=== PATIENT | male | born 1975 | race Caucasian/White ===

== ENCOUNTER 2017-09-25 10:47 | Emergency (ER) | payer MEDICARE, OTHER ==
[2017-09-25 11:16] VITALS: RESP 16; TEMP 98.2
[2017-09-25] MEDS ORDERED: SODIUM CHLORIDE 0.9% 1,000 ML IV STA ×2 (11:41→12:33)
[2017-09-25] MEDS ORDERED: DIPH,PERTUS(ACELL)TETVAC-LF 0.5 ML VIAL IM ONE (11:42)
[2017-09-25 12:24] VITALS: BP 123/79; PULSE 68
[2017-09-25 12:51] LABS: Basophils % (A) 0 %; Eosinophils # (A) 0.1 k/uL (0-0.7); Eosinophils % (A) 1 %; HCT 47.1 % (39.0-53.0); Lymphocytes # (A) 1.9 k/uL (1.0-4.8); Lymphocytes % (A) 11 %; MCH 32.9 pg (25.0-35.0); MCHC 31.7 g/dL (31.0-37.0); MCV 103.6 fL (80.0-100.0); Macrocytosis Slight; Mean Platelet Volume 7.2; Monocytes # (A) 0.5 k/uL (0-1.0); Monocytes % (A) 3 %; Neutrophils # (A) 14.3 k/uL (1.3-7.7); Neutrophils % (A) 85 %; Platelet Count 431 k/uL (150-450); RBC 4.55 m/uL (4.30-5.90); RDW 13.8 % (11.5-15.5); WBC 16.9 k/uL (3.8-10.6)
--- NOTE | 2017-09-25 12:51 | CT ---
EXAMINATION TYPE: CT brain wo con DATE OF EXAM: 09/25/2017 COMPARISON: NONE HISTORY: Seizure CT DLP: 978.[address] of the brain was performed. The ventricles, basal cisterns and sulci overlying the cerebral convexities demonstrate a normal appe arance. There is no evidence for intracranial hemorrhage or sulcal effacement. No mass effects are seen. Osseous calvarium is intact. If symptoms persist consider MRI as clinically warranted. IMPRESSION: 1. No acute intracranial process is seen at this time.
[2017-09-25 13:34] LABS: ALT 22 U/L (21-72); AST 24 U/L (17-59); Albumin 4.5 g/dL (3.5-5.0); Alkaline Phosphatase 93 U/L (38-126); Anion Gap 14 mmol/L; Blood Urea Nitrogen 17 mg/dL (9-20); Calcium 9.7 mg/dL (8.4-10.2); Carbon Dioxide 24 mmol/L (22-30); Chloride 108 mmol/L (98-107); Glucose 87 mg/dL (74-99); Potassium 4.2 mmol/L (3.5-5.1); Sodium 146 mmol/L (137-145); Total Bilirubin 0.4 mg/dL (0.2-1.3); Total Protein 7.5 g/dL (6.3-8.2)
[2017-09-25 13:39] LABS: Valproic Acid (Depakene) 56.6 ug/mL
--- NOTE | 2017-09-25 14:29 | ED ---
Seizure HPI - General Chief Complaint: Seizure Stated Complaint: Seizure Time Seen by Provider: 09/25/17 11:35 Source: patient, EMS Mode of arrival: EMS Limitations: altered mental status - History of Present Illness Initial Comments: This 42-year-old white male presents by EMS after apparently having a seizure. They apparently found him in a snowbank seizing. They gave him 10 mg of Versed and this apparently stopped the seizure. He apparently does have a long- standing history of seizures and is on several different antiseizure medications. The mother later does present and states that she did not witness this seizure. He duration of the seizure is unknown. The patient does complain of some pain to his left tongue and apparently bit his tongue. He states that he thinks that he bit off a piece of his tongue and that he swallowed it and it is stuck in his throat. He also has abrasions noted to his scalp and bilateral hands. He has a very bizarre behavior. He is paranoid at times and is very angry. He is quite controversial, argumentative, and swearing profusely. His mother does not relate a known history of psychiatric disorders. The patient is a very poor historian. He has a significant tangential thought processes. - Related Data Home Medications Medication Instructions Recorded Confirmed Divalproex [Depakote] 1,000 mg PO BID 04/16/16 09/25/17 Topiramate [Topamax] 100 mg PO BID 04/16/16 09/25/17 lamoTRIgine [LaMICtal] 200 mg PO BID 04/16/16 09/25/17 Previous Rx's Medication Instructions Recorded Lidocaine Viscous 2% [Xylocaine 1 ml MUCOUS MEM Q3H PRN #20 ml 09/25/17 Viscous] Allergies Allergy/AdvReac Type Severity Reaction Status Date / Time No Known Allergies Allergy Verified 09/25/17 11:59 Review of Systems ROS Statement: Those systems with pertinent positive or pertinent negative responses have been documented in the HPI. ROS Other: All systems not noted in ROS Statement are negative. Past Medical History Past Medical History: Seizure Disorder History of Any Multi-Drug Resistant Organisms: None Reported Past Surgical History: Hernia Repair, Orthopedic Surgery Past Psychological History: No Psychological Hx Reported Smoking Status: Current every day smoker Past Alcohol Use History: None Reported, Rare Past Drug Use History: Marijuana General Exam - General Exam Comments Initial Comments: GENERAL: The patient is well nourished and well hydrated. VITAL SIGNS: Heart rate, blood pressure, respiratory rate reviewed as recorded in nurse's notes. EYES: Pupils are round and reactive. Extraocular movements are intact. No conjunctival / lid redness or swelling. ENT: No external evidence of injury, swelling, or ecchymosis. Airway is patent. Throat is clear. There is an abrasion noted to the left tongue. There is no missing pieces of his tongue as the patient persists. NECK: Nontender. No swelling or evidence of injury. No subcutaneous emphysema. Trachea is midline. No thyroid mass. HEART: Regular rate and rhythm. Good peripheral pulses. LUNGS/CHEST: Breath sounds clear and equal bilaterally. No rales, rhonchi, or wheezes. No ecchymosis, subcutaneous emphysema, or tenderness. ABDOMEN: Abdomen soft without tenderness. No palpable masses or organomegaly. No peritoneal signs. No abdominal wall swelling or ecchymosis. EXTREMITIES: No extremity tenderness. Normal muscle tone and function. No thoracolumbar tenderness. NEUROLOGIC: Sensation is grossly intact. Cranial nerve exam reveals face is symmetrical, tongue is midline, speech is clear. SKIN: Minor abrasions are noted to the superior portion of the scalp as well as the bilateral hands over the knuckles. No induration or masses noted. PSYCHIATRIC: Alert, argumentative, paranoid, delusional. Limitations: altered mental status Course Vital Signs 09/25/17 09/25/17 10:50 12:23 Temperature 98.2 F Pulse Rate 66 68 Respiratory 16 16 Rate Blood Pressure 113/67 123/79 O2 Sat by Pulse 99 99 Oximetry Medical Decision Making - Medical Decision Making The patient was seen and examined. All diagnostics were reviewed. His white blood cell count is minimally elevated. Remainder of labs are essentially within normal limits. His Depakote level is therapeutic. The urine drug screen is positive for marijuana. The patient had a computed tomography scan of the brain and this did not show any acute processes. He is watched for quite some time and still maintains the significant psychiatric symptoms. It is felt as though he benefit from further psychiatric evaluation. The psychiatric team did evaluate the patient. The case is discussed with the psychiatric nurse. They feel as though he is apparently stable for discharge. They will provide him with some outpatient resources. They do not feel as though he is a harm to himself. - Lab Data Result diagrams: 09/25/17 12:19 09/25/17 13:12 Lab Results 09/25/17 09/25/17 09/25/17 Range/Units 12:19 13:12 16:05 WBC 16.9 H (3.8-10.6) k/uL RBC 4.55 (4.30-5.90) m/uL Hgb 15.0 (13.0-17.5) gm/dL Hct 47.1 (39.0-53.0) % MCV 103.6 H (80.0-100.0) fL MCH 32.9 (25.0-35.0) pg MCHC 31.7 (31.0-37.0) g/dL RDW 13.8 (11.5-15.5) % Plt Count 431 (150-450) k/uL Neutrophils % 85 % Lymphocytes % 11 % Monocytes % 3 % Eosinophils % 1 % Basophils % 0 % Neutrophils # 14.3 H (1.3-7.7) k/uL Lymphocytes # 1.9 (1.0-4.8) k/uL Monocytes # 0.5 (0-1.0) k/uL Eosinophils # 0.1 (0-0.7) k/uL Basophils # 0.0 (0-0.2) k/uL Macrocytosis Slight Sodium 146 H (137-145) mmol/L Potassium 4.2 (3.5-5.1) mmol/L Chloride 108 H (98-107) mmol/L Carbon Dioxide 24 (22-30) mmol/L Anion Gap 14 mmol/L BUN 17 (9-20) mg/dL Creatinine 1.30 H (0.66-1.25) mg/dL Est GFR (MDRD) Af Amer >60 (>60 ml/min/1.73 sqM) Est GFR (MDRD) Non-Af >60 (>60 ml/min/1.73 sqM) Glucose 87 (74-99) mg/dL Calcium 9.7 (8.4-10.2) mg/dL Total Bilirubin 0.4 (0.2-1.3) mg/dL AST 24 (17-59) U/L ALT 22 (21-72) U/L Alkaline Phosphatase 93 (38-126) U/L Total Protein 7.5 (6.3-8.2) g/dL Albumin 4.5 (3.5-5.0) g/dL Urine Color Light Yellow Urine Appearance Clear (Clear) Urine pH 5.5 (5.0-8.0) Ur Specific [place] 1.006 (1.001-1.035) Urine Protein Negative (Negative) Urine Glucose (UA) Negative (Negative) Urine Ketones 1+ H (Negative) Urine Blood Negative (Negative) Urine Nitrite Negative (Negative) Urine Bilirubin Negative (Negative) Urine Urobilinogen <2.0 (<2.0) mg/dL Ur Leukocyte Esterase Negative (Negative) Urine Opiates Screen Not Detected (NotDetected) Ur Oxycodone Screen Not Detected (NotDetected) Urine Methadone Screen Not Detected (NotDetected) Ur Propoxyphene Screen Not Detected (NotDetected) Ur Barbiturates Screen Not Detected (NotDetected) Valproic Acid 56.6 ug/mL U Tricyclic Antidepress Not Detected (NotDetected) Ur Phencyclidine Scrn Not Detected (NotDetected) Ur Amphetamines Screen Not Detected (NotDetected) U Methamphetamines Scrn Not Detected (NotDetected) U Benzodiazepines Scrn Not Detected (NotDetected) Urine Cocaine Screen Not Detected (NotDetected) U Marijuana (THC) Screen Detected H (NotDetected) Disposition Clinical Impression: Generalized seizure, Abrasions of multiple sites, Abrasion of tongue Disposition: HOME SELF-CARE Condition: Fair Instructions: Recurrent Seizures in Adults (ED), Abrasion (ED) Additional Instructions: Please follow-up with the psychiatric nurses recommendations for further follow- up. Please use Tylenol or Motrin if needed for any pain. Prescriptions: Lidocaine Viscous 2% [Xylocaine Viscous] 1 ml MUCOUS MEM Q3H PRN #20 ml PRN Reason: tongue pain Referrals: Joaquin Paz MD [Primary Care Provider] - 1-2 days Time of Disposition: 18:11
[2017-09-25] MEDS ORDERED: LIDOCAINE VISCOUS 2% 15 ML CUP MUCOUS MEM PRN (15:48)
[2017-09-25 16:23] LABS: Appearance,Urine Clear (Clear); Bilirubin,Urine Negative (Negative); Blood,Urine Negative (Negative); Color,Urine Light Yellow; Glucose,Urine (UA) Negative (Negative); Ketones,Urine 1+ (Negative); Leukocyte Esterase,Urine Negative (Negative); Nitrite,Urine Negative (Negative); PH, Urine 5.5 (5.0-8.0); Protein,Urine Negative (Negative); Specific Gravity,Urine 1.006 (1.001-1.035); Urobilinogen,Urine <2.0 mg/dL (<2.0)
[2017-09-25 16:36] LABS: Amphetamine Screen,Urine Not Detected (NotDetected); Barbiturate Screen,Urine Not Detected (NotDetected); Benzodiazepines Screen,Urine Not Detected (NotDetected); Cocaine Screen,Urine Not Detected (NotDetected); Methadone Screen, Urine Not Detected (NotDetected); Opiate Screen,Urine Not Detected (NotDetected); Oxycodone Screen, Urine Not Detected (NotDetected); Phencyclidine Screen,Urine Not Detected (NotDetected); Urn Cannabinoid Scrn Detected (NotDetected)
[2017-09-25 16:37] LABS: Tricyclic Antidepressant,Urine Not Detected (NotDetected)
== END 2017-09-25 18:35 | disposition home or self-care (01) ==
LOC: EC 10:47
DX: S00.01XA Abrasion of scalp, initial encounter (principal); S60.512A Abrasion of left hand, initial encounter; S60.511A Abrasion of right hand, initial encounter; S00.512A Abrasion of oral cavity, initial encounter; R56.9 Unspecified convulsions; F17.200 Nicotine dependence, unspecified, uncomplicated; Z23 Encounter for immunization; Z79.899 Other long term (current) drug therapy
CPT/HCPCS: 36415; 70450; 80053; 80164; 80306; 81003; 82075; 85025; 90471; 90715; 96360; 96361; 99285

== ENCOUNTER 2017-09-26 00:24 | Emergency (ER) | payer MEDICARE, OTHER ==
[2017-09-26] MEDS ORDERED: LIDOCAINE VISCOUS 2% 15 ML CUP MUCOUS MEM ONE (00:36)
[2017-09-26] MEDS ORDERED: PENICILLIN V POTASSIUM 250 MG TAB PO STA (00:36)
[2017-09-26] MEDS ORDERED: DEXAMETHASONE SOD PHOSPHATE 4 MG/ML 1 ML VIAL PO STA (00:37)
[2017-09-26] MEDS ORDERED: Acetaminophen-Codeine 300-30mg TAB PO STA (00:37)
[2017-09-26 00:39] VITALS: BP 132/87; PULSE 76; RESP 18; TEMP 97.4
[2017-09-26] MEDS ORDERED: IBUPROFEN 600 MG STARTER PACK 4 TAB BTL PO STA (00:40)
[2017-09-26] MEDS ORDERED: ACET/COD 300 MG/30 MG STARTER PACK 6 TAB BTL PO STA (00:40)
[2017-09-26] MEDS ORDERED: PENICILLIN VK 500MG STARTER 4 TAB BTL PO STA (00:40)
--- NOTE | 2017-09-26 00:40 | ED ---
ENT HPI - General Stated complaint: TOOTH PAIN Time Seen by Provider: 09/26/17 00:29 Source: patient, EMS, RN notes reviewed Mode of arrival: EMS Limitations: no limitations - History of Present Illness Initial comments: 42-year-old male present emergency Department chief complaint of dental pain. Patient states that he's been having ongoing dental worsening. Patient states that he was seen here for seizure earlier states that he bit his tongue and states his tongue also hurts. Patient denies any fevers or chills. Patient states that he was given viscous lidocaine still won't or cannot have it in stock to have it filled. Patient denies any neck pain, headache or dizziness. Denies any difficulty swallowing though he complains of tonsillar pain. Patient states it's tonsillar swollen. - Related Data Home Medications Medication Instructions Recorded Confirmed Divalproex [Depakote] 1,000 mg PO BID 04/16/16 09/25/17 Topiramate [Topamax] 100 mg PO BID 04/16/16 09/25/17 lamoTRIgine [LaMICtal] 200 mg PO BID 04/16/16 09/25/17 Previous Rx's Medication Instructions Recorded Lidocaine Viscous 2% [Xylocaine 1 ml MUCOUS MEM Q3H PRN #20 ml 09/25/17 Viscous] Penicillin V Potassium [Pen Vee K] 500 mg PO QID #40 tablet 09/26/17 Allergies Allergy/AdvReac Type Severity Reaction Status Date / Time No Known Allergies Allergy Verified 09/25/17 11:59 Review of Systems ROS Statement: Those systems with pertinent positive or pertinent negative responses have been documented in the HPI. ROS Other: All systems not noted in ROS Statement are negative. Past Medical History Past Medical History: Seizure Disorder History of Any Multi-Drug Resistant Organisms: None Reported Past Surgical History: Hernia Repair, Orthopedic Surgery Past Psychological History: No Psychological Hx Reported Smoking Status: Current every day smoker Past Alcohol Use History: None Reported, Rare Past Drug Use History: Marijuana General Exam General appearance: alert, in no apparent distress Head exam: Present: atraumatic, normocephalic, normal inspection Eye exam: Present: normal appearance, PERRL, EOMI. Absent: scleral icterus, conjunctival injection, periorbital swelling ENT exam: Present: mucous membranes moist, TM's normal bilaterally, normal external ear exam. Absent: normal exam, normal oropharynx (edentulous, multiple eroded teeth noted, tonsillar stones and mild edema noted) Neck exam: Present: normal inspection, full ROM. Absent: tenderness, meningismus, lymphadenopathy Respiratory exam: Present: normal lung sounds bilaterally. Absent: respiratory distress, wheezes, rales, rhonchi, stridor Cardiovascular Exam: Present: regular rate, normal rhythm, normal heart sounds. Absent: systolic murmur, diastolic murmur, rubs, gallop, clicks Medical Decision Making - Medical Decision Making 42-year-old male presented from for dental pain. Patient has very poor dentition we given antibiotics for possible infection. Patient will be given viscous lidocaine in the emergency department as he is a prescription of this. Patient we given dosed according for the pain and Decadron for his tonsillitis. Patient will be discharged with antibiotics and [codeine. Disposition Clinical Impression: Dental caries, Toothache, Tonsillitis Disposition: HOME SELF-CARE Condition: Stable Instructions: Toothache (ED) Additional Instructions: Please return to the Emergency Department if symptoms worsen or any other concerns. Prescriptions: Penicillin V Potassium [Pen Vee K] 500 mg PO QID #40 tablet Referrals: Joaquin Paz MD [Primary Care Provider] - 1-2 days Time of Disposition: 00:40
== END 2017-09-26 01:18 | disposition home or self-care (01) ==
LOC: EC 00:24
DX: K02.9 Dental caries, unspecified (principal); J03.90 Acute tonsillitis, unspecified; G40.909 Epilepsy, unspecified, not intractable, without status epilepticus; F17.200 Nicotine dependence, unspecified, uncomplicated; Z79.899 Other long term (current) drug therapy
CPT/HCPCS: 99283; J1100

== ENCOUNTER 2017-09-26 18:37 | Inpatient (IN) | payer MEDICARE, MEDICAID ==
[2017-09-26] MEDS ORDERED: HYDROcodone/APAP 5-325MG 1 EACH TAB PO STA (19:17)
--- NOTE | 2017-09-26 20:04 | ED ---
Psych HPI - General Chief Complaint: Dental/Oral Stated Complaint: Dental Pain Source: patient, EMS Mode of arrival: EMS - History of Present Illness Initial Comments: 42 yo male with pmh of seizure disorder and no psych history presenting for evaluation of erratic behavior and psych evaluation. Pt was seen at this facility twice yesterday, once for psych evaluation and the second time for dental pain. He was cleared by a psychiatric evaluation for outpatient treatment on the first visit on the second visit he was set up with a dentist which she saw today. At the dental visit he had a tooth extracted however prior to going to the dental appointment he had pulled tooth out himself. While obtaining this history patient also states that he had pain into his neck which radiates down into his right chest and down into his right pelvis and right leg. Furthermore as I was interviewing the patient he reached into his mouth and manipulated a piece of tooth loose and pulled it out of his mouth. As the questions progressed the patient's story became less and less clear, jumping from one idea to another raising concern for flight of ideas and possible underlying psych condition. Patient further stated that he felt like he was going to stating, "I've been around people before. I smell like they do and I know I'm going to ." When asked what he thought he was going to from he would change the topic. - Related Data Home Medications Medication Instructions Recorded Confirmed Divalproex [Depakote] 1,000 mg PO BID 04/16/16 09/26/17 Topiramate [Topamax] 100 mg PO BID 04/16/16 09/26/17 lamoTRIgine [LaMICtal] 200 mg PO BID 04/16/16 09/26/17 Previous Rx's Medication Instructions Recorded Lidocaine Viscous 2% [Xylocaine 1 ml MUCOUS MEM Q3H PRN #20 ml 09/25/17 Viscous] Penicillin V Potassium [Pen Vee K] 500 mg PO QID #40 tablet 09/26/17 Allergies Allergy/AdvReac Type Severity Reaction Status Date / Time No Known Allergies Allergy Verified 09/26/17 19:28 Review of Systems ROS Statement: Those systems with pertinent positive or pertinent negative responses have been documented in the HPI. ROS Other: All systems not noted in ROS Statement are negative. Constitutional: Reports: other (smells like he is going to ). Denies: fever , chills Eyes: Denies: eye pain, eye discharge, vision change ENT: Reports: throat pain (right sided throat/neck), dental pain. Denies: ear pain, hearing loss, epistaxis Respiratory: Denies: cough, dyspnea Cardiovascular: Denies: chest pain, palpitations Endocrine: Denies: fatigue, polydipsia, polyuria Gastrointestinal: Denies: abdominal pain, nausea, vomiting Genitourinary: Denies: urgency, dysuria Musculoskeletal: Denies: back pain, arthralgia, myalgia Skin: Denies: rash, lesions Neurological: Denies: headache, weakness Psychiatric: Reports: anxiety. Denies: auditory hallucinations, visual hallucinations, homicidal thoughts, suicidal thoughts Hematological/Lymphatic: Denies: easy bleeding, easy bruising Past Medical History Past Medical History: Seizure Disorder History of Any Multi-Drug Resistant Organisms: None Reported Past Surgical History: Hernia Repair, Orthopedic Surgery Past Psychological History: No Psychological Hx Reported Smoking Status: Current every day smoker Past Alcohol Use History: None Reported, Rare Past Drug Use History: Marijuana General Exam Limitations: no limitations General appearance: alert, in distress (mild when recounting his symptoms) Head exam: Present: normocephalic, other (abrasion to upper forehead. ) Eye exam: Present: normal appearance, PERRL, EOMI. Absent: scleral icterus, conjunctival injection, nystagmus, periorbital swelling, periorbital tenderness ENT exam: Present: mucous membranes moist, other (pt has multiple dental extractions, one of which was performed by himself today; pt removed a piece of a tooth in front of me during interview) Neck exam: Present: normal inspection, full ROM. Absent: tenderness, lymphadenopathy, thyromegaly Respiratory exam: Present: normal lung sounds bilaterally. Absent: respiratory distress, wheezes, rales, rhonchi, stridor Cardiovascular Exam: Present: regular rate, normal rhythm GI/Abdominal exam: Present: soft. Absent: distended, tenderness, guarding, rebound, rigid Rectal exam: Present: deferred Extremities exam: Present: normal inspection, full ROM, normal capillary refill. Absent: tenderness, pedal edema, joint swelling, calf tenderness Back exam: Present: normal inspection Neurological exam: Present: alert, oriented X3, CN II-XII intact Psychiatric exam: Present: agitated, other (poor concentration, poor insight). Absent: homicidal ideation, suicidal ideation Skin exam: Present: warm, dry, intact, normal color Course Vital Signs 09/26/17 18:43 Pulse Rate 83 Respiratory 18 Rate Blood Pressure 128/78 O2 Sat by Pulse 98 Oximetry Medical Decision Making - Medical Decision Making 42 yo male presenting for his third visit since yesterday morning. States he removed a tooth on his own then had another removed by a dentist. States he feels like he is going to but can't articulate why. During interview pt removed a tooth fragment from its socket which caused further bleeding. Pt seems to have a flight of ideas making interview difficult. Family arrived at the bedside and states this "isn't him" and that although he has seizure disorder he isn't like this. Further deny injuries or other precipitating etiology like new or changing medications. Concern for psychiatric condition NOS and will obtain labs, seizure med levels, and order psych evaluation. CT head performed yesterday and without further trauma or indication of infection will not repeat at this time. Labs revealed a leukocytosis but otherwise no significant abnormalities. Psych eval performed and they agreed with plan to admit for further evaluation. Admission order placed and bed request submitted. - Lab Data Result diagrams: 09/26/17 19:25 09/26/17 19:25 Lab Results 09/26/17 09/26/17 Range/Units 19:25 19:25 WBC 16.6 H (3.8-10.6) k/uL RBC 4.20 L (4.30-5.90) m/uL Hgb 13.8 (13.0-17.5) gm/dL Hct 41.5 (39.0-53.0) % MCV 98.8 (80.0-100.0) fL MCH 32.9 (25.0-35.0) pg MCHC 33.3 (31.0-37.0) g/dL RDW 12.5 (11.5-15.5) % Plt Count 441 (150-450) k/uL Neutrophils % 77 % Lymphocytes % 16 % Monocytes % 6 % Eosinophils % 0 % Basophils % 0 % Neutrophils # 12.7 H (1.3-7.7) k/uL Lymphocytes # 2.6 (1.0-4.8) k/uL Monocytes # 0.9 (0-1.0) k/uL Eosinophils # 0.0 (0-0.7) k/uL Basophils # 0.0 (0-0.2) k/uL Sodium 146 H (137-145) mmol/L Potassium 4.7 (3.5-5.1) mmol/L Chloride 108 H (98-107) mmol/L Carbon Dioxide 23 (22-30) mmol/L Anion Gap 15 mmol/L BUN 14 (9-20) mg/dL Creatinine 1.00 (0.66-1.25) mg/dL Est GFR (MDRD) Af Amer >60 (>60 ml/min/1.73 sqM) Est GFR (MDRD) Non-Af >60 (>60 ml/min/1.73 sqM) Glucose 86 (74-99) mg/dL Calcium 10.0 (8.4-10.2) mg/dL Valproic Acid 11.0 ug/mL Carbamazepine <3.0 ug/mL Serum Alcohol <10 mg/dL Disposition Clinical Impression: Psychosis Disposition: ADMITTED IP TO THIS [facility] Decision to Admit Reason: Admit from [facility] Decision Date: 09/26/17 Decision Time: 21:22
[2017-09-26 20:06] LABS: Basophils % (A) 0 %; Eosinophils % (A) 0 %; HCT 41.5 % (39.0-53.0); HGB 13.8 gm/dL (13.0-17.5); Lymphocytes # (A) 2.6 k/uL (1.0-4.8); Lymphocytes % (A) 16 %; MCH 32.9 pg (25.0-35.0); MCHC 33.3 g/dL (31.0-37.0); MCV 98.8 fL (80.0-100.0); Mean Platelet Volume 6.2; Monocytes # (A) 0.9 k/uL (0-1.0); Monocytes % (A) 6 %; Neutrophils # (A) 12.7 k/uL (1.3-7.7); Neutrophils % (A) 77 %; Platelet Count 441 k/uL (150-450); RDW 12.5 % (11.5-15.5); WBC 16.6 k/uL (3.8-10.6)
[2017-09-26 20:20] LABS: Alcohol <10 mg/dL; Anion Gap 15 mmol/L; Blood Urea Nitrogen 14 mg/dL (9-20); Carbamazepine (Tegretol) <3.0 ug/mL; Carbon Dioxide 23 mmol/L (22-30); Chloride 108 mmol/L (98-107); Glucose 86 mg/dL (74-99); Potassium 4.7 mmol/L (3.5-5.1); Sodium 146 mmol/L (137-145)
[2017-09-26] MEDS ORDERED: LIDOCAINE VISCOUS 2% 15 ML CUP MUCOUS MEM ONE (21:38)
[2017-09-26 21:41] LABS: Amphetamine Screen,Urine Not Detected (NotDetected); Barbiturate Screen,Urine Not Detected (NotDetected); Benzodiazepines Screen,Urine Not Detected (NotDetected); Cocaine Screen,Urine Not Detected (NotDetected); Methadone Screen, Urine Not Detected (NotDetected); Opiate Screen,Urine Detected (NotDetected); Oxycodone Screen, Urine Not Detected (NotDetected); Phencyclidine Screen,Urine Not Detected (NotDetected); Tricyclic Antidepressant,Urine Not Detected (NotDetected); Urn Cannabinoid Scrn Detected (NotDetected)
[2017-09-26] MEDS ORDERED: MAGNESIUM HYDROXIDE 2,400 MG/10 ML CUP PO PRN (22:06)
[2017-09-26] MEDS ORDERED: ZIPRASIDONE 20 MG VIAL IM PRN (22:06)
[2017-09-26] MEDS ORDERED: ACETAMINOPHEN TAB 325 MG TAB PO PRN (22:06)
[2017-09-26] MEDS ORDERED: MAG HYDROX/AL HYDROX/SIMETH 30 ML CUP PO PRN (22:06)
[2017-09-26] MEDS ORDERED: PENICILLIN VK 500MG STARTER 4 TAB BTL PO SCH (22:15)
[2017-09-26] MEDS: lamoTRIgine 100 MG TAB PO SCH (23:43)
[2017-09-26] MEDS: TOPIRAMATE 100 MG TAB PO SCH (23:44)
[2017-09-26] MEDS: DIVALPROEX 500 MG TABLET.DR PO SCH (23:44)
--- NOTE | 2017-09-26 23:51 | P.MDCNMH ---
History of Present Illness H&P Date: 09/26/17 Chief Complaint: medical management 42 year old male with history of epilepsy, presented to the ED due to erratic behavior as reported by the family. Patient is jumping between subjects during the interview, but he is fixated on the idea that he can smell and thinks he will . He had severe dental pain for which he came to the ED yesterday, then was referred to OP dentist office who was able to extract a tooth for the patient. Medical records also indicates that he has pulled another tooth at home using a spoon, and ED report noted that he had pulled a fragment of a tooth from his mouth while waiting in the ED during the interview with ED doc. However, patient is denying any of that. Patient has no past psych history and claims to be compliant with his seizure meds despite that he gets frequent breakthrough seizures, and last one was 2 days ago where he bit his tongue (and he showed me) otherwise denies urinary or bowel incontinence during this attack. Patient otherwise, indicated that he wants to live and scared of thats why he is here. He started talking about video games, then his father, then his dental pain, and kept going on and on about random subjects without reaching a point. He reports throbbing toothache over his right upper molar, 10./10 in severity, denies any fevers or chills, denies any bleeding from the mouth, and kept on requesting ice packs. Review of Systems Constitutional: Patient denies fever, denies chills, denies night sweating, denies significant weight changes Eyes: Patient denies visual changes, denies eye pain ENT: Patient denies ear pain, denies rhinorrhea, denies sore throat Cardiovascular: Patient denies chest pain, denies exertional dyspnea, denies peripheral leg edema, denies orthopnea, denies paroxysmal nocturnal dyspnea Respiratory:Patient denies cough, denies wheezing, denies shortness of breath Gastrointestinal: Patient denies diarrhea, denies constipation, denies nausea , denies vomiting, denies abdominal pain Genitourinary: Patient denies dysuria, denies hematuria, denies changes in urinary habits, denies genital lesions Musculoskeletal: Patient denies muscle pain, denies joint pain Psychiatric: Patient denies changes in mood or memory, denies suicidal ideation, denies anxiety Endocrine: Patient denies heat intolerance, denies cold intolerance, denies excessive thirst, denies polyuria Neurological: Patient denies focal neurologic deficits, denies weakness, denies numbness, denies tingling Hem/Lymphatic: Patient denies bleeding tendency, denies bruising, denies swollen lymph glands Allergic/Immun: Patient denies recent allergic reactions Skin: Patient denies rashes, denies pruritis, denies ulcers Past Medical History Past Medical History: Seizure Disorder History of Any Multi-Drug Resistant Organisms: None Reported Past Surgical History: Hernia Repair, Orthopedic Surgery Past Psychological History: No Psychological Hx Reported Smoking Status: Current every day smoker Past Alcohol Use History: None Reported, Rare Past Drug Use History: Marijuana - Past Family History father Family Medical History: Coronary Artery Disease (CAD) Medications and Allergies Home Medications Medication Instructions Recorded Confirmed Type Divalproex [Depakote] 1,000 mg PO BID 04/16/16 09/26/17 History Topiramate [Topamax] 100 mg PO BID 04/16/16 09/26/17 History lamoTRIgine [LaMICtal] 200 mg PO BID 04/16/16 09/26/17 History Lidocaine Viscous 2% [Xylocaine 1 ml MUCOUS MEM Q3H PRN #20 ml 09/25/17 Rx Viscous] Penicillin V Potassium [Pen Vee K] 500 mg PO QID #40 tablet 09/26/17 09/26/17 Rx Allergies Allergy/AdvReac Type Severity Reaction Status Date / Time No Known Allergies Allergy Verified 09/26/17 19:28 Physical Exam Vitals: Vital Signs Temp Pulse Pulse Resp BP BP Pulse Ox 09/26/17 22:11 99.7 F H 80 127/89 09/26/17 18:43 83 18 128/78 98 Intake and Output 09/26/17 09/26/17 09/27/17 14:59 22:59 06:59 Other: Weight 78.018 kg Patient Weight 09/27/17 06:59 Weight 78.018 kg Constitutional: No acute distress, pressured speech Eyes: Anicteric sclerae, moist conjunctiva, no lid-lag Pupils equal round reactive to light ENMT: NC/AT very poor oral hygiene, right upper molar tooth bed looks clean with no bleeding gums left side of the tongue with evidence of an ulcer 1 X 1 CM, no bleeding , no tenderness Neck: Supple, FROM, no masses, or JVD No carotid bruits No thyromegaly Lungs: Clear to auscultation Clear to percussion Normal respiratory effort, no accessory muscle use Cardiovascular: Heart regular in rate and rhythm, No murmurs, gallops, or rubs No peripheral edema Abdominal: Soft Nontender, no guarding, rebound or rigidity Abdomen moving with respiration Normoactive bowel sounds No hepatomegaly, No splenomegaly No palpable mass No abdominal wall hernia noted Skin: multiple abrasions over bilateral hands, evidence of dried blood around his finger tips , but he could not identify the source Normal temperature, tone, texture, turgor No induration No subcutaneous nodules No rash No ulcers Extremities: No digital cyanosis No clubbing Pedal pulses intact and symmetrical Radial pulses intact and symmetrical No calf tenderness Psychiatric: Alert and oriented to person, place and time paranoid and pressured speech poor judgment Neuro Muscles Strength 5/5 in all 4 extremities Sensation to light touch grossly present throughout No focal sensory deficits Lymphatics: no palpable cervical or supraclavicular , or inguinal lymph nodes Cranial Nerve Examination - Cranial Nerves Cranial Nerve II- Optic: Intact Cranial Nerve III- Oculomotor: Intact Cranial Nerve IV- Trochlear: Intact Cranial Nerve V- Trigeminal: Intact Cranial Nerve - Abducens: Intact Cranial Nerve VII- Facial: Intact Cranial Nerve VIII- Auditory: Intact Cranial Nerve IX- Glossopharyngeal: Intact Cranial Nerve X- Vagus: Intact Cranial Nerve XI- Accessory: Intact Cranial Nerve XII- Hypoglossal: Intact Results CBC & Chem 7: 09/26/17 19:25 09/26/17 19:25 Labs: Abnormal Lab Results - Last 24 Hours (Table) 09/26/17 09/26/17 09/26/17 Range/Units 19:25 19:25 21:18 WBC 16.6 H (3.8-10.6) k/uL RBC 4.20 L (4.30-5.90) m/uL Neutrophils # 12.7 H (1.3-7.7) k/uL Sodium 146 H (137-145) mmol/L Chloride 108 H (98-107) mmol/L Urine Opiates Screen Detected H (NotDetected) U Marijuana (THC) Screen Detected H (NotDetected) Assessment and Plan (1) Dental caries Narrative/Plan: poor dental hygiene recent dental extraction , then followed but self extraction of 2 more teeth Dentist has given him a prescription for penicillin start on Augmentin BID for 7 days pain control Current Visit: No Status: Acute Code(s): K02.9 - DENTAL CARIES, UNSPECIFIED SNOMED Code(s): 24560253 (2) Psychosis Narrative/Plan: management per psych Current Visit: Yes Status: Acute Code(s): F29 - UNSP PSYCHOSIS NOT DUE TO A SUBSTANCE OR KNOWN PHYSIOL COND SNOMED Code(s): 58876499 (3) Abrasion of tongue Narrative/Plan: patient claims that was due to a breakthrough seizure Current Visit: No Status: Acute Code(s): S00.512A - ABRASION OF ORAL CAVITY , INITIAL ENCOUNTER SNOMED Code(s): 606240706 (4) Abrasions of multiple sites Narrative/Plan: patient did not identify a cause, and when asked he would not give an answer about the mechanism of these abrasions local wound care Current Visit: No Status: Acute Code(s): T07.XXXA - UNSPECIFIED MULTIPLE INJURIES, INITIAL ENCOUNTER SNOMED Code(s): 116077130 (5) Generalized seizure Narrative/Plan: resume home medications patient counseled not to drive per state law for at least 6 months from his last seizure check AED blood levels seizure precautions Current Visit: No Status: Acute Code(s): R56.9 - UNSPECIFIED CONVULSIONS SNOMED Code(s): 175504831 (6) DVT prophylaxis Narrative/Plan: low risk , ambulatory Current Visit: Yes Status: Acute Code(s): ZDI9940 - SNOMED Code(s): 317492243 (7) Leukocytosis Narrative/Plan: possibly related to recent dental extraction with/without dental abscess Augmentin BID monitor for any fevers Current Visit: Yes Status: Acute Code(s): D72.829 - ELEVATED WHITE BLOOD CELL COUNT, UNSPECIFIED SNOMED Code(s): 864742520 Plan: Thank you for allowing us to participate in the care of this patient. We will follow peripherally. Do not hesitate to contact us with questions. Someone can be reached from the [facility] hospitalist group at all hours of the day at [phone].
[2017-09-27] MEDS: AMOXIC-POT CLAV 875-125MG 1 EACH TAB PO SCH ×3 (00:27→20:25)
[2017-09-27] MEDS: LIDOCAINE VISCOUS 2% 15 ML CUP MUCOUS MEM PRN ×5 (00:46→21:08)
[2017-09-27] MEDS: LORazepam 1 MG TAB PO PRN ×2 (00:51→23:41)
[2017-09-27] MEDS: lamoTRIgine 100 MG TAB PO SCH ×2 (09:00→20:26)
[2017-09-27] MEDS: TOPIRAMATE 100 MG TAB PO SCH ×2 (09:01→20:25)
[2017-09-27] MEDS: DIVALPROEX 500 MG TABLET.DR PO SCH ×2 (09:01→20:25)
[2017-09-27] MEDS: NICOTINE 21MG/24HR PATCH TRANSDERM SCH (09:41)
[2017-09-27] MEDS: IBUPROFEN 800 MG TAB PO PRN (14:48)
--- NOTE | 2017-09-27 15:04 | HP ---
HISTORY AND PHYSICAL DATE OF SERVICE: 09/27/2017 IDENTIFYING DATA: Patient is a 42-year-old male. He resides with his girlfriend and a 14-year-old daughter. He was referred through the emergency room for admission. CHIEF COMPLAINT: The patient was disorganized in thoughts. He had made odd statements. He had significant pain issues with a likely infected tooth. He had not been eating for 2 days. HISTORY OF PRESENT ILLNESS: The patient reports no past psychiatric issues. He has not had a psychiatric hospitalization. He has not been on any psychotropic medications in the past, save for a brief period when he was on Xanax 2 mg a day. Currently, he is not on any psychotropic medications. He said he started having problems recently. He was having a lot of pain in his jaw from an infected tooth. He said he started having odd experiences. One experience was that he said he "smelled ." He said that in the past he had two experiences with people close to him that were dying. He has a very vivid recollection of how they smelled. He said he could smell that on himself and believed that he was dying. He also noted that he had episodes where he would be laying down and felt as if there were many people standing or sitting on him to the point where he could barely lift his arm or do anything else. Apparently, this experience would come and go. He believes that he did have a seizure in the middle of the night in the last couple days as he has quite a serious laceration on his tongue from likely biting his tongue. He said in the last 2 days he could not eat because of the tooth pain. He has had some anxiety. He says mostly all of his problems including anxiety, possible panic symptoms and these experiences all are pretty current situations and are not anything that he had been having problems with in the past. It is noted that he has been diagnosed with a seizure disorder. He says he has only been taking his antiseizure medicines inconsistently. Currently he is on Depakote 1000 mg twice a day, Lamictal 200 mg twice a day and Topamax 100 mg twice a day. His Depakote level in the emergency room was 11. He says that he has grand mal seizures, possibly up to 5 or 6 in the year's time. He says he also has milder seizures where he is aware that his body is reacting in some strange way. He says that he often will just put his head down or turn away so that other people can't see his reaction. He will do this for a period of time and then the sensation seems to go away. He does not describe a past history of any anxiety or depression issues. He does not recognize any immediate stress issues. He is admitted for further evaluation. SUBSTANCE USE HISTORY: Patient smokes marijuana daily. He reports no other significant substance use issues past or present. PAST MEDICAL HISTORY: Positive for a seizure disorder. He was started on Augmentin in the emergency room for a tooth infection. Further medical history and review of systems as per medical consultation of Dr. Fry. FAMILY AND SOCIAL HISTORY: The only information I have available is above. Patient is disabled due to seizure disorder. MENTAL STATUS EXAM: Patient gave fair eye contact. Psychomotor activity was slowed. Speech was monotone and soft. He answered questions with direct responses. His affect was blunted. He had a very reserved manner. His mood was somewhat dysphoric. It was difficult to say if he was significantly distressed. PHYSICAL EXAM: As per medical consultation of Dr. Fry. ASSESSMENT: This 42-year-old male is admitted for acute psychotic episode. He is having some experiences of unreality that may well relate to the combination of some affects from his seizure disorder and some affects from an infection. He has had abnormal somatosensory experiences. DIAGNOSES: 1. Psychosis, NOS. 2. Seizure disorder. RECOMMENDATIONS: Patient will be admitted for comprehensive medical psychiatric and psychosocial evaluation. Will engage the patient in individual and group therapeutic activities. I will restart the patient's seizure medications including Depakote 1000 mg twice a day, Topamax 100 mg twice a day and Lamictal 200 mg twice a day. Will get a Neurology consult. He has been started on antibiotics. He may well show improvement without necessitating psychotropic medications. We would probably aim to have a family meeting with the patient's girlfriend for further evaluation and treatment planning. MMODL / IJN: [id number] /
[2017-09-27] MEDS: BACITRACIN 500 UNIT/GM OINT 28.4 GM TUBE TOPICAL SCH (19:11)
--- NOTE | 2017-09-27 20:22 | CT ---
EXAMINATION TYPE: CT brain wo con DATE OF EXAM: 09/27/2017 COMPARISON: 09/25/2017 HISTORY: Injury to top of head 2 days ago. Headaches since. CT DLP: 1183 mGycm. Automated Exposure Control for Dose Reduction was Utilized. TECHNIQUE: CT scan of the head is performed without contrast. FINDINGS: Ventricles and sulci appear normal. There is no mass effect nor midline shift. There is no sign of in tracranial hemorrhage. The calvarium is intact. CONCLUSION: Normal CT scan of the brain. No change.
[2017-09-28] MEDS: LIDOCAINE VISCOUS 2% 15 ML CUP MUCOUS MEM PRN ×2 (05:00→08:59)
[2017-09-28] MEDS: AMOXIC-POT CLAV 875-125MG 1 EACH TAB PO SCH ×2 (08:02→20:33)
[2017-09-28] MEDS: lamoTRIgine 100 MG TAB PO SCH ×2 (08:02→20:33)
[2017-09-28] MEDS: NICOTINE 21MG/24HR PATCH TRANSDERM SCH (08:02)
[2017-09-28] MEDS: DIVALPROEX 500 MG TABLET.DR PO SCH ×2 (08:02→20:33)
[2017-09-28] MEDS: TOPIRAMATE 100 MG TAB PO SCH ×2 (08:02→20:33)
[2017-09-28] MEDS: BACITRACIN 500 UNIT/GM OINT 28.4 GM TUBE TOPICAL SCH ×2 (08:02→20:34)
[2017-09-28] MEDS: HYDROcodone/APAP 5-325MG 1 EACH TAB PO PRN ×2 (09:21→17:56)
--- NOTE | 2017-09-28 09:41 | CONS ---
CONSULTATION DATE OF CONSULTATION: 09/27/2017 CHIEF COMPLAINT: Seizure disorder. HISTORY OF PRESENT ILLNESS: The patient is a 42-year-old male, who was being evaluated today on 09/27/2017 by the Neurology Service per the request of Dr. Calderon for seizure disorder. The patient was admitted to the [facility] for erratic behavior. According to the chart, the patient was fixed on the idea that he can "smell " and he is close to dying. From a neurology standpoint, he has history of seizure disorder and is on Lamictal 200 mg b.i.d., Topamax 100 mg b.i.d. and Depakote 1000 mg b.i.d. He has been having severe dental pain and did have some tooth extractions according to him and he has not been taking his medications due to this pain. He did have a witnessed generalized tonic-clonic seizure this past Monday according to him. His serum Depakote level on admission was subtherapeutic at 11.0. His urine drug screen was positive for opiates and marijuana. He states that his dentist gave him a prescription for [place] after his tooth extraction. His CBC showed leukocytosis at 16.6, and his basic metabolic profile showed no significant abnormalities. He has not had any further seizure-like activity since his admission. He is complaining of a headache which is present in his frontal and parietal region bilaterally. He states that he has been banging his head, "to get rid of the tooth pain." He denies any dizziness. He denies any fevers. PAST MEDICAL HISTORY: Seizure disorder, history of hernia repair and orthopedic surgeries. SOCIAL HISTORY: The patient is a current every day smoker. He rarely drinks alcohol. He admits to marijuana use. FAMILY HISTORY: Positive for heart disease. HOME MEDICATIONS: Reviewed in the chart. ALLERGIES: No known drug allergies. REVIEW OF SYSTEMS: CONSTITUTIONAL: Negative. EYES: Negative. ENT: As mentioned above. CARDIOVASCULAR: Negative. RESPIRATORY: Negative. NEUROLOGICAL: As mentioned above. GASTROINTESTINAL: Negative. GENITOURINARY: Negative. MUSCULOSKELETAL: Negative. PSYCHIATRIC: As mentioned above. DERMATOLOGICAL: Negative. ENDOCRINE: Negative. PHYSICAL EXAM: Vital signs show a temperature of 99.0, pulse 78, respirations 16, blood pressure 104/60. GENERAL APPEARANCE: The patient is a well-developed male who appears to be in no acute distress. HEENT: Mild facial swelling is noticed on the right side. Extraocular muscles are intact. NECK: Supple with no masses felt. CARDIOVASCULAR: Regular rate and rhythm. ABDOMEN: Nontender, nondistended. EXTREMITIES: Showed no edema or clubbing. NEUROLOGICAL EXAM: The patient is awake and oriented x3. Speech is slightly dysarthric due to dental work. Language testing was normal. Strength is full in all 4 extremities. Sensory exam was normal to light touch in all 4 extremities. Gait is normal. No tremors or seizure-like activity is seen. IMPRESSION: 1. Seizure disorder. 2. Medication noncompliance. 3. Psychiatric disorder. 4. Headache with recent multiple head injuries, self-inflicted. 5. Leukocytosis. RECOMMENDATION: The patient does have history of seizure disorder and is on 3 antiepileptic medications as mentioned above. He has not been compliant with taking his medication due to dental pain. The importance of medication compliance was discussed with the patient. He has been restarted on his home dose of Lamictal, Depakote and Topamax. I will repeat a serum Depakote level tomorrow morning. As for his headaches, I will order a CT scan of the brain without contrast given his self-inflicted head injuries. I do recommend further management for his dental pain as he does have swelling and leukocytosis. Continue the rest of your current workup and management. I will continue to follow with you. Further recommendations to follow. Thank you for allowing me to participate in the care of your patient. If you have any questions, please feel free to contact me. PATRIZIA / IJN: [id number] /
[2017-09-28 10:54] LABS: HCT 45.6 % (39.0-53.0); HGB 14.6 gm/dL (13.0-17.5); MCH 32.4 pg (25.0-35.0); MCHC 32.1 g/dL (31.0-37.0); Mean Platelet Volume 6.5; Platelet Count 411 k/uL (150-450); RBC 4.52 m/uL (4.30-5.90); RDW 12.3 % (11.5-15.5); WBC 9.9 k/uL (3.8-10.6)
--- NOTE | 2017-09-28 11:23 | P.PN ---
Subjective Progress Note Date: 09/28/17 Principal diagnosis: dental pain Patient is a 42-year-old male for history of epilepsy, tobacco abuse, and recent dental extraction who is seen in the mental health unit. He had pulled his own tooth and then developed issues. He then presented to the dentist to pull the second 2 and placed him on penicillin. He also has recently had a seizure which caused him to bite his tongue and has a tongue laceration. He was placed on Augmentin due to his infection on presentation here. Viscous lidocaine was added to help with pain control. He then had Gordon added last night, help with pain control as well. Seen and examined. He complains of dental pain. He is unable to open his mouth fully. He has not been eating much secondary to pain when chewing. He also complains of a headache which happened after hitting his head on purpose. He was trying to distract himself from the pain of having bit through his tongue. He also complains of right cheek pain and erythema over the area. He denies any dizziness or blurry vision. He has no other complaints currently. Objective - Vital Signs Vital signs: Vital Signs Temp 98.2 F 09/28/17 06:59 Pulse 73 09/28/17 06:59 Resp 16 09/28/17 06:59 BP 114/63 09/28/17 06:59 Pulse Ox 98 09/26/17 18:43 Intake & Output 09/27/17 09/28/17 09/28/17 18:59 06:59 18:59 Weight 78.018 kg - Exam General: non toxic, mild distress, appears at stated age Derm: Abrasion over central forehead, warm, dry Head: atraumatic, normocephalic, symmetric Eyes: EOMI, no lid lag, anicteric sclera Mouth: Swelling over right maxillary area, right upper jaw with swelling, no purulent exudate noted. Multiple dry sockets noted. Patient also with multiple dental caries. Cardiovascular: S1S2 reg, no murmur, positive posterior tibial pulse bilateral, Lungs: CTA bilateral, no rhonchi, no rales , no accessory muscle use Abdominal: soft, nontender to palpation, no guarding, no appreciable organomegaly Ext: no gross muscle atrophy, no edema, no contractures Neuro: CN II-XI grossly intact, no focal neuro deficits Psych: Alert, oriented, appears angry - Labs CBC & Chem 7: 09/28/17 07:45 09/26/17 19:25 Labs: Abnormal Lab Results - Last 24 Hours (Table) 09/28/17 Range/Units 07:45 MCV 101.0 H (80.0-100.0) fL Assessment and Plan Assessment: Dental infection with multiple dental caries -Continue with Augmentin twice a day -Check CBC -Change to full liquid diet -Changed to Magic mouthwash -Continue with Tylenol, Motrin, and as needed Gordon -outpatient dental follow-up Seizure disorder -Continue home medications -Neurology recommendations appreciated Psychosis/delusional thinking -Your psych management Abrasions secondary to break through seizures -Continue with mouthwash Will plan on evaluating patient again in a.m. Thank you for allowing us to participate in the care of this patient. Do not hesitate to contact us with questions. Someone can be reached from the [facility] [place] hospitalist group at all hours of the day at [phone].
[2017-09-28] MEDS: IBUPROFEN 800 MG TAB PO PRN (12:11)
[2017-09-28] MEDS: MAG HYDROX/AL HYDROX/SIMETH 30 ML, diphenhydrAMINE ELIXIR 75 MG, LIDOCAINE VISCOUS 30 ML PO PRN ×9 (12:16→21:59)
--- NOTE | 2017-09-28 14:35 | P.PN ---
Subjective Progress Note Date: 09/28/17 Principal diagnosis: Patient is a 42-year-old male who is being followed by the neurology service for seizure disorder. Patient was admitted to [facility] unit for erratic behavior. Patient reports to me that he thought he could smell "" and he thought he was dying. Patient describes this as being different from any aura his ever had with his seizures. He is currently on Lamictal 200 mg twice a day, Topamax 100 mg twice a day, and Depakote 1000 mg twice a day. Patient had been having severe dental pain and decided to extract a tooth at home. He had a second tooth extracted by the dentist. Patient states he was not taking his seizure medication like he should due to dental pain. According to the chart, patient had a witnessed generalized tonic- clonic seizure at home. No further seizures have been reported since admission. At the time of my evaluation, patient is alert and conversant. Patient is cooperative and denies any seizure activity. Objective - Vital Signs Vital signs: Vital Signs Temp 98.2 F 09/28/17 06:59 Pulse 73 09/28/17 06:59 Resp 16 09/28/17 06:59 BP 114/63 09/28/17 06:59 Pulse Ox 98 09/26/17 18:43 Intake & Output 09/27/17 09/28/17 09/28/17 18:59 06:59 18:59 Weight 78.018 kg - Exam PHYSICAL EXAM: GENERAL APPEARANCE: Patient is a well-developed, male who appears to be in no acute distress. HEENT: Normocephalic, atraumatic, no facial asymmetry is seen. Neck is supple with no masses felt. CARDIOVASCULAR: Regular rate and rhythm. ABDOMEN: Nontender, nondistended. EXTREMITIES: Show no edema or clubbing. NEUROLOGICAL EXAM: Patient is awake, alert, and oriented 3. Speech is slightly dysarthric due to dental work. Language testing is normal. Strength is full in all 4 extremities. Sensory exam to light touch is normal in all 4 extremities. No tremors or seizure-like activity is noted. - Labs CBC & Chem 7: 09/28/17 07:45 09/26/17 19:25 Labs: Abnormal Lab Results - Last 24 Hours (Table) 09/28/17 Range/Units 07:45 MCV 101.0 H (80.0-100.0) fL Assessment and Plan Plan: Impression: 1. Seizure disorder 2. Medication noncompliance 3. Psychiatric disorder 4. Headache with recent self-inflicted head injury 5. Leukocytosis Recommendation: Patient does have history of seizure disorder and is on 3 antiepileptic medications. Patient has been noncompliant with his medication due to dental pain. Patient has been restarted on home dose of Lamictal, Depakote, and Topamax. Repeat Depakote level this morning was 90.8. Computed tomography scan of the brain was done and was normal. I will order an EEG. I recommend continued management for dental pain as he continues to have swelling. Patient reports ice packs are helping significantly. Continue seizure precautions. I will continue to follow with you. Further recommendations to follow. I performed an examination of the patient and discussed the management with the TRANSPORTATION SUPERINTENDENT. I have reviewed the TRANSPORTATION SUPERINTENDENT notes and agree with the findings and plan of care.
--- NOTE | 2017-09-28 15:25 | PN ---
PROGRESS NOTE DATE OF SERVICE: 09/28/2017 CHIEF COMPLAINT: The patient had disorganized thoughts. He was making odd statements. He had pain issues with likely infected tooth. He had not been eating for 2 days. INTERVAL HISTORY: Patient has been doing fair. He had a quiet evening last night. He sleeps fair. He has been taking Ativan. He says the only time he gets some relief from the pain in his teeth is when he takes an Ativan and then can get to sleep for a while. He is up in the day. He gets himself around the unit. He will interact some with others. He has been attending at least some of the groups. He was seen by Dr. Flores who diagnosed seizure disorder with recommendation to continue medications. Apparently, an EEG has been ordered, which had been requested by his outpatient neurologist. He had a CAT scan that was normal. My understanding is the EEG is scheduled for tomorrow. The patient has not had any further experiences of delusional nature that he had when he came in. He is not having the abnormal smells. He is not having the sensory experiences that he was having. He says his mood is a little better. He tolerates his current medications, which primarily are his antiseizure medications. When I saw the patient, he gave fairly good eye contact. Psychomotor activity was a little slowed. Speech was somewhat monotone. He answered questions with brief responses. His thoughts were clear. His affect was limited. His mood quiet. He did not appear to be significantly distressed, but did seem to be in some pain from his jaw. ASSESSMENT: I will continue the current diagnosis and treatment plan. Will continue psychotropic medications the same. We have an EEG and Depakote level pending. The plan will be to aim for discharge tomorrow. MMODL / IJN: [id number] /
[2017-09-28 19:10] LABS: Appearance,Urine Clear (Clear); Bacteria,Urine Rare /hpf; Bilirubin,Urine Negative (Negative); Blood,Urine Negative (Negative); Color,Urine Yellow; Glucose,Urine (UA) Negative (Negative); Ketones,Urine 2+ (Negative); Leukocyte Esterase,Urine Negative (Negative); Mucus,Urine Rare /hpf; Nitrite,Urine Negative (Negative); Protein,Urine 1+ (Negative); Specific Gravity,Urine 1.031 (1.001-1.035); Squamous Epithelial Cell,Urine <1 /hpf (0-4); WBC,Urine 1 /hpf (0-5)
[2017-09-28] MEDS: LORazepam 1 MG TAB PO PRN (21:58)
[2017-09-29] MEDS: HYDROcodone/APAP 5-325MG 1 EACH TAB PO PRN (06:22)
[2017-09-29] MEDS: MAG HYDROX/AL HYDROX/SIMETH 30 ML, diphenhydrAMINE ELIXIR 75 MG, LIDOCAINE VISCOUS 30 ML PO PRN ×12 (08:00→16:13)
[2017-09-29] MEDS: BACITRACIN 500 UNIT/GM OINT 28.4 GM TUBE TOPICAL SCH (08:38)
[2017-09-29] MEDS: DIVALPROEX 500 MG TABLET.DR PO SCH (08:39)
[2017-09-29] MEDS: lamoTRIgine 100 MG TAB PO SCH (08:39)
[2017-09-29] MEDS: AMOXIC-POT CLAV 875-125MG 1 EACH TAB PO SCH (08:40)
[2017-09-29] MEDS: TOPIRAMATE 100 MG TAB PO SCH (08:40)
[2017-09-29] MEDS: NICOTINE 21MG/24HR PATCH TRANSDERM SCH (08:40)
[2017-09-29 09:29] VITALS: BP 127/89; PULSE 80; RESP 17; TEMP 99.7; BMI 22.5
--- NOTE | 2017-09-29 11:22 | P.PN ---
Subjective Progress Note Date: 09/29/17 Principal diagnosis: dental pain Patient is a 42-year-old male for history of epilepsy, tobacco abuse, and recent dental extraction who is seen in the mental health unit. He had pulled his own tooth and then developed issues. He then presented to the dentist to pull the second 2 and placed him on penicillin. He also has recently had a seizure which caused him to bite his tongue and has a tongue laceration. He was placed on Augmentin due to his infection on presentation here. Viscous lidocaine was added to help with pain control. He then had [place] added last night, help with pain control as well. Added cools solution has greatly helped his dental pain. Patient seen and examined. His mouth pain is much improved. His swelling is decreasing and he is feeling much better. He would also like to follow with the neurologist that he has seen here. Objective - Vital Signs Vital signs: Vital Signs Temp 99.7 F H 09/29/17 09:08 Pulse 80 09/29/17 09:08 Resp 17 09/29/17 09:08 BP 127/89 09/29/17 09:08 Pulse Ox 98 09/26/17 18:43 Intake & Output 09/28/17 09/29/17 09/29/17 18:59 06:59 18:59 Weight 73.17 kg - Exam General: non toxic, mild distress, appears at stated age Derm: Abrasion over central forehead, warm, dry Head: atraumatic, normocephalic, symmetric Eyes: EOMI, no lid lag, anicteric sclera Mouth: Swelling over right maxillary area decreasing,no purulent exudate noted. Multiple dry sockets noted. Patient also with multiple dental caries. Cardiovascular: S1S2 reg, no murmur, positive posterior tibial pulse bilateral, Lungs: CTA bilateral, no rhonchi, no rales , no accessory muscle use Abdominal: soft, nontender to palpation, no guarding, no appreciable organomegaly Ext: no gross muscle atrophy, no edema, no contractures Neuro: CN II-XI grossly intact, no focal neuro deficits Psych: Alert, oriented, appears angry - Labs CBC & Chem 7: 09/28/17 07:45 09/26/17 19:25 Labs: Abnormal Lab Results - Last 24 Hours (Table) 09/28/17 Range/Units 18:30 Urine Protein 1+ H (Negative) Urine Ketones 2+ H (Negative) Urine Bacteria Rare H (None) /hpf Urine Mucus Rare H (None) /hpf Assessment and Plan Assessment: Dental infection with multiple dental caries -Continue with Augmentin twice a day for a total of 7 days -leukocytosis resolved - Magic mouthwash on discharge - Continue with Tylenol, Motrin, and as needed [place] - outpatient dental follow-up Seizure disorder -Continue home medications -Neurology recommendations appreciated, f/u is outpatient Psychosis/delusional thinking -Your psych management Abrasions secondary to break through seizures -Continue with mouthwash
--- NOTE | 2017-09-29 12:42 | DS ---
DISCHARGE SUMMARY DATE OF SERVICE: 09/29/2017 DATE OF ADMISSION: 09/26/2017 DATE OF DISCHARGE: 09/29/2017 ADMISSION AND DISCHARGE DIAGNOSIS: 1. Psychosis, NOS. 2. Seizure disorder. HISTORY OF PRESENTING ILLNESS: The patient is a 42-year-old male. He presented to the emergency room with some symptoms of psychosis. He had a foul smelling scent that he said, "smelled of ." He had experiences of feeling that there was pressure on his body as if people were lying on him. He has a diagnosis of seizure disorder. He has had grand mal seizures. He also said that he has had some kind of partial seizure where he can feel the event coming on. He can generally quiet himself and then the event goes away in a short period of time of a matter of minutes. He has had a serious gum infection which has made it very difficult for him to eat or drink fluids. He had not eaten in the last 2 days. He was having increasing anxiety and some panic symptoms. His only medications included Depakote 1000 mg twice a day, Lamictal 200 mg twice a day and Topamax 100 mg twice a day. In the emergency room, his Depakote level was 11. He was not sleeping well. He was vague about other possible symptoms of anxiety or depression. He was admitted for further evaluation. SUBSTANCE USE HISTORY: Patient smokes marijuana daily. PAST MEDICAL HISTORY AND PHYSICAL EXAM: As per medical consultation of Dr. Fry. MENTAL STATUS EXAM: Patient gave fair eye contact. Psychomotor activity was slowed. Speech was monotone, soft. He answered questions with direct responses. His affect was blunted. He had a very reserved manner. His mood was somewhat dysphoric. It was difficult to say if he was distressed. He did make an effort to answer formal cognitive questions. PHYSICAL EXAM: As per medical consultation of Dr. Fry. COURSE OF HOSPITALIZATION: Patient was admitted for a comprehensive medical psychiatric and psychosocial evaluation. We engaged the patient in individual and group therapeutic activities. On admission, patient was continued on his antiseizure medications including Depakote, Lamictal and Topamax as above. He also was started on Augmentin for his oral infection. He received Benadryl/lidocaine solution due to his having lacerated his tongue during the apparent seizure. It was felt that much of his presentation related to the combination of some seizure issues. His being off his antiseizure medications and the effects of his infection. As such he was not started on any other psychotropic medications. He had fairly good resolution of his symptoms. His somatosensory experiences dissipated completely. He did not show any further signs of any psychotic symptoms. There was no indication of hallucinations or delusions. He was cooperative. He was seen by Dr. Flores who assessed seizure disorder with the patient being noncompliant with his medications. A Depakote level [address] scan of the brain was negative. The patient did attend some groups. He was cooperative. He remained fairly stable in his mood. He did not show significant anxiety symptoms. He had a normal pattern of sleep. His appetite improved. He was in agreement with discharge plans. CONDITION AT DISCHARGE: Patient was stable, mood was even. He had resolution of olfactory and somatosensory delusions. He tolerated his medications well. RECOMMENDATIONS AND FOLLOWUP: The patient is discharged to home. He will continue on Depakote ER 1000 mg twice a day, Topamax 100 mg twice a day and Lamictal 200 mg at bedtime. His morning dose of Lamictal was stopped due to some GI distress. He will also continue Augmentin 875/125 twice a day, 15 tablets, no refills. MMODL / IJN: [id number] /
[2017-09-29] MEDS ORDERED: PNEUMOCOCCAL VACC-PNEUMOVAX 23 25 MCG/0.5 ML VIAL IM ONE (13:00)
[2017-09-29] MEDS ORDERED: INFLUENZA VACCINE (6 MOS+) 60 MCG/0.5 ML SYRINGE IM ONE (13:00)
--- NOTE | 2017-09-29 16:22 | P.PN ---
Subjective Principal diagnosis: Patient is a 42-year-old male who is being followed by the neurology service for seizure disorder. Patient was admitted to [facility] unit for erratic behavior. Patient reports to me that he thought he could smell "" and he thought he was dying. Patient describes this as being different from any aura his ever had with his seizures. He is currently on Lamictal 200 mg twice a day, Topamax 100 mg twice a day, and Depakote 1000 mg twice a day. Patient had been having severe dental pain and decided to extract a tooth at home. He had a second tooth extracted by the dentist. Patient states he was not taking his seizure medication like he should due to dental pain. According to the chart, patient had a witnessed generalized tonic- clonic seizure at home. No further seizures have been reported since admission. At the time of my evaluation, patient is alert and conversant. Patient is cooperative and denies any seizure activity. 09/29/2017 Patient is a pleasant 42-year-old male who is being followed by the neurology service for seizure disorder. Patient has not had any further seizures since admission. He will continue current antiepileptic medication regimen. Patient does admit he was noncompliant at home due to dental pain. At the time of my evaluation, patient reports dental pain is all controlled. Patient is alert and cooperative and will follow up with outpatient neurology. Objective - Vital Signs Vital signs: Vital Signs Temp 99.7 F H 09/29/17 09:08 Pulse 80 09/29/17 09:08 Resp 17 09/29/17 09:08 BP 127/89 09/29/17 09:08 Pulse Ox 98 09/26/17 18:43 Intake & Output 09/28/17 09/29/17 09/29/17 18:59 06:59 18:59 Weight 73.17 kg - Exam PHYSICAL EXAM: GENERAL APPEARANCE: Patient is a well-developed, male who appears to be in no acute distress. HEENT: Normocephalic, atraumatic, no facial asymmetry is seen. Neck is supple with no masses felt. CARDIOVASCULAR: Regular rate and rhythm. ABDOMEN: Nontender, nondistended. EXTREMITIES: Show no edema or clubbing. NEUROLOGICAL EXAM: Patient is awake, alert, and oriented 3. Speech is slightly dysarthric due to dental work. Language testing is normal. Strength is full in all 4 extremities. Sensory exam to light touch is normal in all 4 extremities. No tremors or seizure-like activity is noted. - Labs CBC & Chem 7: 09/28/17 07:45 09/26/17 19:25 Labs: Abnormal Lab Results - Last 24 Hours (Table) 09/28/17 Range/Units 18:30 Urine Protein 1+ H (Negative) Urine Ketones 2+ H (Negative) Urine Bacteria Rare H (None) /hpf Urine Mucus Rare H (None) /hpf Assessment and Plan Plan: Impression: 1. Seizure disorder 2. Medication noncompliance 3. Psychiatric disorder 4. Headache with recent self-inflicted head injury 5. Leukocytosis Recommendation: Patient does have history of seizure disorder and is on 3 antiepileptic medications. Patient has been noncompliant with his medication due to dental pain. Patient has been restarted on home dose of Lamictal, Depakote, and Topamax. Repeat Depakote level this morning was 90.8. Computed tomography scan of the brain was done and was normal. EEG was done and results are pending. I recommend continued management for dental pain as he continues to have swelling. Patient reports ice packs are helping significantly. Continue seizure precautions. Patient is stable for discharge from a neurological standpoint. I will continue to follow with you on an as-needed basis. Feel free to call with any questions or concerns. I performed an examination of the patient and discussed the management with the INFUSION NURSE. I have reviewed the INFUSION NURSE notes and agree with the findings and plan of care.
[2017-09-29] MEDS ORDERED: lamoTRIgine 100 MG TAB PO SCH (21:00)
--- NOTE | 2017-09-30 17:25 | EEG ---
ELECTROENCEPHALOGRAM REPORT DATE OF SERVICE: 09/29/2017. REASON FOR TESTING: Seizures. CURRENT ANTIEPILEPTIC MEDICATIONS: 1. Lamictal. 2. Depakote and. 3. Topamax. DESCRIPTION OF THE PROCEDURE: This EEG was performed using a 21 channel digital electroencephalograph, following international 10-20 system. DESCRIPTION OF THE RECORDING: From the beginning of the tracing and with patient's eyes closed, the background rhythm was mostly consisting of 8 Hz alpha frequency in the posterior occipital leads. No obvious asymmetry is seen. Photic stimulation was performed with a good driving response seen. No pathological waves were elicited. Hyperventilation was not performed. Occasional movement artifacts are seen. The patient remains awake throughout the tracing. No epileptiform discharges were seen. His EKG lead showed a regular rate and rhythm. INTERPRETATION: This awake EEG can be considered within normal limits. There was no asymmetry seen. No epileptiform discharges were noticed. The absence of epileptiform discharges does not rule out the diagnosis of epilepsy; therefore, clinical correlation is recommended. MMONUR / IJN: [id number] /
== END 2017-09-29 16:37 | disposition home or self-care (01) | DRG 885 ==
LOC: EC 18:37 → 3MHU 21:18
PROVIDERS: ADMIT Psychiatry & Neurology Psychiatry; ATTEND Psychiatry & Neurology Psychiatry
DX: F29 Unspecified psychosis not due to a substance or known physiological condition (principal); G40.409 Other generalized epilepsy and epileptic syndromes, not intractable, without status epilepticus; F12.90 Cannabis use, unspecified, uncomplicated; F41.9 Anxiety disorder, unspecified; K04.7 Periapical abscess without sinus; K02.9 Dental caries, unspecified; R51 Headache; S00.512A Abrasion of oral cavity, initial encounter; T07.XXXA Unspecified multiple injuries, initial encounter; F17.200 Nicotine dependence, unspecified, uncomplicated; Z91.14 Patient's other noncompliance with medication regimen; Z79.899 Other long term (current) drug therapy; Z87.19 Personal history of other diseases of the digestive system
CPT/HCPCS: 36415; 70450; 80048; 80156; 80164; 80306; 80320; 81001; 84443; 85025; 85027; 90686; 90732; 95819; 99284

== ENCOUNTER 2019-04-27 17:55 | Emergency (ER) | payer MEDICARE, OTHER ==
[2019-04-27 18:06] VITALS: BP 117/82; PULSE 80; RESP 18; TEMP 99.2
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
--- NOTE | 2019-04-27 18:58 | XR ---
EXAMINATION TYPE: XR hand complete bilateral DATE OF EXAM: 04/27/2019 COMPARISON: NONE HISTORY: Bilateral pain Trauma TECHNIQUE: 3 views each hand FINDINGS: Metacarpals are intact. I see no fracture nor dislocation. Are no erosions. There is no sub luxation. Joint spaces are normal. There is no osteopenia. IMPRESSION: Negative exam. No fracture.
--- NOTE | 2019-04-27 18:59 | XR ---
EXAMINATION TYPE: XR wrist complete BILATERAL DATE OF EXAM: 04/27/2019 COMPARISON: NONE HISTORY: Pain. Trauma. TECHNIQUE: 4 views each wrist FINDINGS: I see no fracture nor dislocation. Joint spaces are normal. Soft tissues appear normal. The re are no pathologic calcifications. Scaphoid bones appear normal. IMPRESSION: Normal bilateral wrist exam.
--- NOTE | 2019-04-27 19:00 | XR ---
EXAMINATION TYPE: XR shoulder complete BILAT DATE OF EXAM: 04/27/2019 COMPARISON: NONE HISTORY: Bilateral shoulder pain TECHNIQUE: 3 views each shoulder FINDINGS: There is a small calcification at the greater tuberosity of the right humerus. Left shoulde r joint appears normal. Joint spaces are normal. There is no evidence of a fracture. IMPRESSION: There is evidence of mild right side calcific tendinitis. No fracture. Normal left should er joint.
--- NOTE | 2019-04-27 19:00 | XR ---
EXAMINATION TYPE: XR chest 2V DATE OF EXAM: 04/27/2019 COMPARISON: NONE HISTORY: Pain TECHNIQUE: Frontal and lateral views of the chest are obtained. FINDINGS: Heart and mediastinum are normal. Lungs are clear. Diaphragm is normal. Bony thorax appear s normal. IMPRESSION: Normal chest
--- NOTE | 2019-04-27 19:02 | XR ---
EXAMINATION TYPE: XR elbow complete bilateral DATE OF EXAM: 04/27/2019 COMPARISON: NONE HISTORY: Bilateral elbow pain TECHNIQUE: 3 views each elbow FINDINGS: There is some spurring on the right side olecranon process. There is bilateral posterior fat pad signs related to joint effusions. I see no displaced fracture. IMPRESSION: Bilateral elbow joint effusions. Occult fractures are possible.
== END 2019-04-27 20:53 | disposition home or self-care (01) ==
LOC: EC 17:55
DX: S42.402A Unspecified fracture of lower end of left humerus, initial encounter for closed fracture (principal); S42.401A Unspecified fracture of lower end of right humerus, initial encounter for closed fracture; G40.909 Epilepsy, unspecified, not intractable, without status epilepticus; F17.200 Nicotine dependence, unspecified, uncomplicated; Z79.899 Other long term (current) drug therapy; V29.9XXA Motorcycle rider (driver) (passenger) injured in unspecified traffic accident, initial encounter; Y93.89 Activity, other specified; Y92.410 Unspecified street and highway as the place of occurrence of the external cause
CPT/HCPCS: 29125; 71046; 99284

== ENCOUNTER 2019-04-29 20:23 | Emergency (ER) | payer MEDICARE, OTHER ==
[2019-04-29 20:40] VITALS: BP 117/77; PULSE 77; RESP 18; TEMP 98.2
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
== END 2019-04-29 21:22 | disposition home or self-care (01) ==
LOC: EC 20:23
DX: M25.522 Pain in left elbow (principal); M25.521 Pain in right elbow; G40.909 Epilepsy, unspecified, not intractable, without status epilepticus; F17.200 Nicotine dependence, unspecified, uncomplicated; Z79.899 Other long term (current) drug therapy
CPT/HCPCS: 99282

== ENCOUNTER 2019-05-06 15:05 | Emergency (ER) | payer MEDICARE, OTHER ==
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
[2019-05-06 15:34] VITALS: PULSE 76; RESP 16
[2019-05-06] MEDS ORDERED: KETOROLAC 30 MG/ML 1 ML VIAL IM STA (16:32)
--- NOTE | 2019-05-06 17:12 | XR ---
EXAMINATION TYPE: XR elbow complete bilateral DATE OF EXAM: 05/06/2019 COMPARISON: 04/27/2019 HISTORY: Pain TECHNIQUE: 3 views each elbow FINDINGS: I see no fracture nor dislocation. There is no sign of elbow joint effusion. There is minim al fragmentation at the olecranon process of the right ulna consistent with old injury. There is no d efinite joint effusion. IMPRESSION: There is clearing of the bilateral elbow joint effusions compared to last exam. No acute fracture seen.
[2019-05-06 18:31] VITALS: BP 131/76; TEMP 97.8
== END 2019-05-06 18:23 | disposition home or self-care (01) ==
LOC: EC 15:05
DX: S50.02XD Contusion of left elbow, subsequent encounter (principal); M25.521 Pain in right elbow; M25.421 Effusion, right elbow; G40.909 Epilepsy, unspecified, not intractable, without status epilepticus; F17.200 Nicotine dependence, unspecified, uncomplicated; Z79.899 Other long term (current) drug therapy; V99.XXXD Unspecified transport accident, subsequent encounter
CPT/HCPCS: 73080; 99283; 96372; J1885

== ENCOUNTER 2025-02-23 14:50 | Emergency (ER) | payer OTHER ==
[2025-02-23 14:59] VITALS: RESP 16; TEMP 98.6
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
[2025-02-23 15:34] LABS: Basophils # (A) 0.07 10*3/uL (0.00-0.10); Basophils % (A) 0.6 %; Eosinophils # (A) 0.12 10*3/uL (0.04-0.35); Eosinophils % (A) 1.1 %; HCT 40.4 % (39.6-50.0); HGB 14.3 g/dL (13.0-17.0); Lymphocytes # (A) 2.73 10*3/uL (0.90-5.00); Lymphocytes % (A) 25.2 %; MCH 34.1 pg (27.0-32.0); MCHC 35.4 g/dL (32.0-37.0); MCV 96.4 fL (80.0-97.0); Mean Platelet Volume 8.9 fL (9.5-12.2); Monocytes # (A) 0.46 10*3/uL (0.20-1.00); Monocytes % (A) 4.3 %; Neutrophils # (A) 7.42 10*3/uL (1.80-7.70); Neutrophils % (A) 68.6 %; Platelet Count 439 10*3/uL (140-440); RBC 4.19 10*6/uL (4.40-5.60); RDW 12.4 % (11.5-14.5); WBC 10.82 10*3/uL (4.50-10.00)
[2025-02-23 15:39] LABS: Glucose,Whole Blood 100 mg/dL (70-110)
[2025-02-23 15:57] LABS: ALT 19 U/L (4-49); AST 22 U/L (17-59); African American GFR (CKD) >90 (>60 ml/min/1.73 sqM); Albumin 4.5 g/dL (3.5-5.0); Alkaline Phosphatase 75 U/L (38-126); Anion Gap 10 mmol/L; Blood Urea Nitrogen 14 mg/dL (9-20); Calcium 10.1 mg/dL (8.4-10.2); Carbon Dioxide 22 mmol/L (22-30); Chloride 107 mmol/L (98-107); Creatine Kinase 117 U/L (55-170); Glucose 95 mg/dL (74-99); Non-African American GFR(CKD) >90 (>60 ml/min/1.73 sqM); Sodium 139 mmol/L (137-145); Total Bilirubin 0.5 mg/dL (0.2-1.3); Total Protein 7.1 g/dL (6.3-8.2)
[2025-02-23 16:02] LABS: Valproic Acid (Depakene) <10.0 ug/mL
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
[2025-02-23 17:10] VITALS: BP 131/82; PULSE 74
== END 2025-02-23 17:07 | disposition home or self-care (01) ==
LOC: EC 14:50
DX: R55 Syncope and collapse (principal); F17.290 Nicotine dependence, other tobacco product, uncomplicated; V49.40XA Driver injured in collision with unspecified motor vehicles in traffic accident, initial encounter
CPT/HCPCS: 36415; 70450; 72125; 80053; 80164; 80175; 82550; 83605; 84484; 85025; 93005; 99284